=== PATIENT | female | born 1960 | race Caucasian/White ===

== ENCOUNTER 2018-04-02 06:59 | Day surgery (SDC) | payer MEDICAID, SELFPAY ==
--- NOTE | 2018-03-27 11:10 | EKG12_ITS ---
Test Reason : PRE OP Blood Pressure : / mmHG Vent. Rate : 099 BPM Atrial Rate : 099 BPM P-R Int : 162 ms QRS Dur : 094 ms QT Int : 356 ms P-R-T Axes : 071 056 051 degrees QTc Int : 456 ms Normal sinus rhythm Normal ECG Confirmed by EDMOND SANTOS, JENNIFFER ([id number]), newspaper editor managing NEENA BEARD ([id number]) on 03/29/2018 1:43:03 PM Referred By: Errol Kennedy Confirmed By:JENNIFFER PRUITT MD
[2018-03-27 12:20] LABS: Hematocrit 42.3 % (37-47); Hemoglobin 13.1 g/dl (12.0-15.0); Mean Corpuscular Hgb 27.8 pg (27.0-32.0); Mean Corpuscular Volume 89.8 fL (81-99); Mean Platelet Vol. 11.7 fl (6.2-12.0); Platelet Count 166 K/mm3 (150-450); RBC Distribution Width CV 13.5 % (11.6-14.6); RBC Distribution Width SD 44.6 fl (35.1-43.9); Red Blood Count 4.71 M/mm3 (4.2-5.4); Scan Indicated on CBC? Y/N NO; White Blood Count 6.4 K/mm3 (4.4-11.0)
[2018-03-27 12:27] LABS: Anion Gap 11 (5-15); BUN 17 mg/dL (7-18); Calcium,Total 9.4 mg/dL (8.5-10.1); Chloride 102 mmol/L (98-107); Creatinine, Serum 0.94 mg/dL (0.55-1.02); EST Glomerular Filtration Rate 65 mL/min (>60); Est Glom Filt Rate - Afr Amer 79 mL/min (>60); Glucose 162 mg/dL (74-106); Potassium 4.5 mmol/L (3.5-5.1); Sodium Level 139 mmol/L (136-145)
[2018-03-27 12:51] LABS: Hemoglobin A1c 8.2 % (4.2-6.3)
[2018-04-02 07:20] VITALS: BP 144/79; PULSE 104; RESP 16; TEMP 35.6; O2SAT 96; BMI 31.4
[2018-04-02 07:35] LABS: Bedside Glucose 223 mg/dL (70-110)
--- NOTE | 2018-04-02 08:43 | PCM.DC ---
You will use the following diet at home:: No restrictions Discharge Activity: May not drive while taking narcotic pain medications. Call your doctor if your incision/area has: Increased Pain/ Swelling Additional Dressing/Incision Instructions:: saline spray to both nostrils 4 times daily. mupirocin to nostrils twice daily. do not press on the outside of nose with force. Allergies/Adverse Reactions: Allergies Iodinated Contrast- Oral and IV Dye [CONTRASTS] Allergy (Verified 03/26/18 10:52) Anaphylaxis Penicillins [PCN] Allergy (Verified 03/26/18 10:51) Hives Medications to take at Discharge Albuterol Inhaler [Ventolin Hfa (SP)] 2 puff INHALATION Q4H PRN PRN 03/26/18 Alogliptin Benzoate [Alogliptin] 25 mg PO DAILY 03/26/18 Anastrozole [Arimidex] 1 mg PO DAILY 03/26/18 Aspirin E.C. [Ecotrin] 81 mg PO DAILY@0800 03/26/18 Bupropion HCl [Bupropion HCl Sr] 200 mg PO BID 03/26/18 Dapagliflozin Propanediol [Farxiga] 5 mg PO DAILY 03/26/18 Ergocalciferol [Vitamin D] 50,000 unit PO Q14D 03/26/18 Escitalopram Oxalate [Lexapro] 20 mg PO DAILY 03/26/18 Glipizide [Glucotrol Xl] 10 mg PO DAILY 03/26/18 Lisinopril [Prinivil] 10 mg PO DAILY 03/26/18 Metformin HCl [Metformin HCl ER] 750 mg PO BID 03/26/18 Omeprazole [Prilosec] 20 mg PO BID 03/26/18 Acetaminophen/Codeine #3 [Tylenol#3] 1 tab PO Q6H PRN PRN 3 Days #10 tab 04/02/18 Sulfamethoxazole/Trimethoprim [Bactrim 400-80 mg Tablet] 1 ea PO BID #10 tab 04/02/18 The following prescriptions were given: Acetaminophen/Codeine #3 [Tylenol#3] 1 tab PO Q6H PRN PRN 3 Days #10 tab PRN Reason: Pain Sulfamethoxazole/Trimethoprim [Bactrim 400-80 mg Tablet] 1 ea PO BID #10 tab Primary Care Physician: Carlos Powers,Out of [Primary Care Provider] - Test Results: Test results from this visit will be discussed in further detail at your follow-up appointment, if applicable. Please Follow Up With: Eric Kennedy MD When: 1 week
--- NOTE | 2018-04-02 08:44 | PCM.OPRPT ---
Problem List (1) Nasal congestion Status: Chronic (2) Incompetent nasal valve Status: Chronic Report of Operation Date of Procedure: 04/02/18 Pre-Operative Diagnosis: 1. nasal congestion. 2. internal nasal valve dysfunction, right and left. 3. inferior turbinate hypertrophy, right and left Post-Operative Diagnosis: 1. nasal congestion. 2. internal nasal valve dysfunction, right and left. 3. inferior turbinate hypertrophy, right and left Surgery/Procedure Performed:: 1. inferior turbinate submucous resection, right and left. 2. correction internal nasal valve dysfunction, right and left Type of Anesthesia:: General Description of Procedure: on the day of the procedure, after appropriate informed consent was obtained, the patient was brought to the operating room and placed in supine position on the operating table. she was placed under general endotracheal anesthesia by the anesthesiologist. the endotracheal tube was secured, the eyes were taped. the table was rotated 90 degrees toward the surgeon. the nose was prepped and draped in sterile fashion. the inferior turbinates and the bilateral lateral nasal sidewalls were injected with lidocaine/epinephrine. an incision was made in the head of the left inferior turbinate with a #15 blade. this was dissected submucosally with a joshua, reduced using suction electrocautery and outfractured using a boies elevator. an incision was made in the head of the right inferior turbinate with a #15 blade. this was dissected submucosally with a joshua, reduced using suction electrocautery and outfractured using a boies elevator. the latera trocar was loaded after right and left markings were made at the junction of the nasal dorsum and lateral nasal sidewall. the left ala was inverted and the latera trocar was inserted deep to the skin and soft tissue envelope in the correct orientation. the implant was guided over the nasal bones and the trocar was removed. the right ala was inverted and the latera trocar was inserted deep to the skin and soft tissue envelope in the correct orientation. the implant was guided over the nasal bones and the trocar was removed. beth splints were sutured into place. the patient was awoken and transferred to the PACU in stable condition.
[2018-04-02] MEDS: Oxymetazoline 0.05% 1 SPRAY SPRAY.BTL 15 SPRAY (08:58)
[2018-04-02 09:30] VITALS: BP 144/79; BP 150/97; PULSE 99; RESP 16; TEMP 36.1; O2SAT 93
[2018-04-02 09:45] VITALS: BP 127/82; BP 144/79; PULSE 89; RESP 16; O2SAT 95
[2018-04-02 09:54] VITALS: BP 144/79; BP 146/82; PULSE 86; RESP 18; TEMP 36.3; O2SAT 96
[2018-04-02] MEDS: Acetaminophen/Codeine #3 Tablet 1 TABLET PO (10:23)
[2018-04-02 10:35] VITALS: BP 144/79
== END 2018-04-02 10:39 | disposition home or self-care (01) ==
LOC: SDC 07:00 → AC 07:00
PROVIDERS: Visit Provider Otolaryngology
PROC: (CPT 30520; principal; 2018-04-02 08:20)
DX: R09.81 Nasal congestion (principal); J34.3 Hypertrophy of nasal turbinates; K21.9 Gastro-esophageal reflux disease without esophagitis; E11.9 Type 2 diabetes mellitus without complications; M95.0 Acquired deformity of nose; I10 Essential (primary) hypertension; J44.9 Chronic obstructive pulmonary disease, unspecified; Z87.891 Personal history of nicotine dependence
CPT/HCPCS: 00160; 30140; 36415; 80048; 82962; 83036; 85027; 93005; J7120